=== PATIENT | female | born 1955 | race Caucasian/White ===

== ENCOUNTER → 2016-07-28 | Outpatient (CLI) | payer BC ==
[~2016-07-28] MED LIST: ALBU1AER9 INH; ASPI-390 PO; ATOR-22 PO; B-COCAP2 PO; DIPH-437 PO; DOXY1TAB6 PO; FLUO10CA48 PO; FRC PO; LATA0.009 OPB; LISI5TAB PO; METH-307 PO; OMEP40CA PO; PSEU60TA80 PO; RANI300T2 PO; [UNRECOGNIZED DRUG - CODE] PO
--- NOTE | 2016-07-29 12:36 | MAMMOGRAPHY REPORT ---
BILATERAL DIGITAL SCREENING MAMMOGRAM TOMOSYNTHESIS WITH CAD: 07/28/2016 CLINICAL HISTORY: Routine screening examination. TECHNIQUE: Breast tomosynthesis in addition to standard 2D mammography was performed. Current study was also evaluated with a Computer Aided Detection (CAD) system. COMPARISON: Comparison is made to exams dated: 07/25/2015 mammogram, 07/24/2014 mammogram, 07/17/2013 mammogram, and 06/26/2010 mammogram - [facility]. BREAST COMPOSITION: There are scattered areas of fibroglandular density in both breasts. FINDINGS: There are diffuse bilateral groupings of punctate microcalcifications, stable dating back to at least 06/18/2008, therefore likely benign. There are stable fine linear metallic densities in the left upper outer quadrant. An 11 mm mass in the 11:00 left breast is also unchanged in size da ting back to at least 2008. No new suspicious mass, architectural distortion or cluster of microcal cifications is seen. IMPRESSION: ACR BI-RADS CATEGORY 1: NEGATIVE There is no mammographic evidence of malignancy. A 1 year screening mammogram is recommended. The p atient will receive written notification of the results. Approximately 10% of breast cancers are not detected with mammography. A negative mammographic repor t should not delay biopsy if a clinically suggestive mass is present. Jacinda Werner M.D. ay/:07/28/2016 18:39:05 Braided Rug Maker: Karrie ROYAL)(Allyson), [facility] letter sent: Normal 1/2 BI-RADS Code: ACR BI-RADS Category 1: Negative
== END | disposition home or self-care (01) ==
LOC: C.MAMM 07:37
PROVIDERS: ATTEND Family Medicine
DX: Z12.31 Encounter for screening mammogram for malignant neoplasm of breast (principal)